=== PATIENT | male | born 1940 | race Two or more races ===

== ENCOUNTER → 2018-04-30 | Outpatient (CLI) | payer MEDICARE, MEDICAID ==
[~2018-04-30] MED LIST: PAIN MEDICATION
== END | disposition home or self-care (01) ==
LOC: STAR 10:28
PROVIDERS: ATTEND Surgery
DX: Z01.818 Encounter for other preprocedural examination (principal)
CPT/HCPCS: 93005

== ENCOUNTER 2018-05-07 06:11 | Day surgery (SDC) | payer MEDICARE, MEDICAID ==
[~2018-05-07] VITALS: Ht 165.1 cm; Wt 64.0 kg
[2018-05-07 06:33] VITALS: BP 133/78
[2018-05-07] MEDS ORDERED: LACTATED RINGERS 1,000 ML IV SCH (06:37)
[2018-05-07] MEDS ORDERED: EPINEPHRINE 1 MG/ML, 1ML ONE (06:44)
[2018-05-07] MEDS ORDERED: BUPIVACAINE 0.25% ONE (06:44)
[2018-05-07] MEDS ORDERED: FENTANYL PF 250 MCG/5ML ONE (07:12)
[2018-05-07] MEDS ORDERED: MIDAZOLAM 1 MG/ML, 2ML ONE (07:12)
[2018-05-07] MEDS ORDERED: PROPOFOL 10 MG/ML, 20ML ONE (07:24)
[2018-05-07] MEDS ORDERED: ROCURONIUM 10MG/ML,5ML ONE (07:24)
[2018-05-07] MEDS ORDERED: CEFAZOLIN 1,000 MG ONE (07:24)
[2018-05-07] MEDS ORDERED: SUGAMMADEX 200 MG/2 ML IVPush ONE (07:54)
[2018-05-07] MEDS ORDERED: OXYcodone 5 MG/5 ML ORAL.SOL UDC ONE (08:08)
[2018-05-07] MEDS ORDERED: FENTANYL PF 100 MCG/2ML ONE ×2 (08:08→08:30)
[2018-05-07] MEDS: FENTANYL PF 100 MCG/2ML IV PRN ×4 (08:11→08:43)
[2018-05-07] MEDS ORDERED: LABETALOL 5MG/ML, 20ML IV PRN (08:30)
[2018-05-07] MEDS ORDERED: ONDANSETRON 2MG/ML, 2ML IV PRN (08:30)
[2018-05-07] MEDS ORDERED: ACETAMINOPHEN 325 MG TABLET PO PRN (08:30)
[2018-05-07] MEDS ORDERED: hydrALAzine 20 MG/ML, 1ML IV PRN (08:30)
[2018-05-07] MEDS ORDERED: MORPHINE SULFATE 4 MG/ML, 1ML IVPush PRN (08:30)
[2018-05-07] MEDS ORDERED: OXYcodone 5 MG/5 ML ORAL.SOL UDC PO PRN (08:30)
[2018-05-07] MEDS ORDERED: PROMETHAZINE 25 MG/ML, 1ML IV PRN (08:30)
[2018-05-07] MEDS ORDERED: HYDROmorphone 2 MG/ML, 1ML ONE (08:30)
[2018-05-07] MEDS ORDERED: MEPERIDINE/PF 25MG/0.5ML IVPush PRN (08:30)
[2018-05-07] MEDS: HYDROmorphone 2 MG/ML, 1ML IVPush PRN ×2 (08:32→08:43)
[2018-05-07] MEDS ORDERED: LABETALOL 20 MG/4 ML ONE (08:34)
[2018-05-07] MEDS ORDERED: hydrALAzine 20 MG/ML, 1ML ONE (08:44)
== END 2018-05-07 11:05 | disposition home or self-care (01) ==
LOC: OUT 06:11
PROVIDERS: ATTEND Surgery
DX: K80.10 Calculus of gallbladder with chronic cholecystitis without obstruction (principal); Z98.890 Other specified postprocedural states; Z72.89 Other problems related to lifestyle
CPT/HCPCS: 47562; 88304; J0171; J0360; J0690; J1170; J2250; J2704; J3010; J3490; J7120